=== PATIENT | female | born 1990 | race Caucasian/White ===

== ENCOUNTER 2020-11-16 10:15 | Emergency (ER) | payer MEDICAID ==
[~2020-11-16] VITALS: Ht 154.9 cm; Wt 70.5 kg
[2020-11-16 12:00] VITALS: BP 140/93
== END 2020-11-16 13:19 | disposition left against medical advice (07) ==
LOC: ER 10:15
DX: M25.511 Pain in right shoulder (principal); Z53.21 Procedure and treatment not carried out due to patient leaving prior to being seen by health care provider

== ENCOUNTER 2020-11-28 00:22 | Emergency (ER) | payer MEDICAID ==
[~2020-11-28] VITALS: Ht 152.4 cm; Wt 72.0 kg
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
[2020-11-28 04:19] LABS: BASO # 0.1 x10^3/uL (0.0-0.2); BASO % 1 % (0-3); EOS # 0.4 x10^3/uL (0.0-0.7); EOS % 3 % (0-3); HEMATOCRIT 33.4 % (36.0-47.0); HEMOGLOBIN 11.4 g/dL (12.0-15.5); LYMPH # 2.7 x10^3/uL (1.0-4.8); LYMPH % 22 % (24-48); MEAN CORPUSCULAR HEMOGLOBIN 29 pg (25-35); MEAN CORPUSCULAR HGB CONC 34 g/dL (31-37); MEAN CORPUSCULAR VOLUME 86 fL (79-100); MONO # 0.9 x10^3/uL (0.0-1.1); MONO % 7 % (0-9); NEUT # 8.1 x10^3/uL (1.8-7.7); NEUT % 67 % (31-73); PLATELET COUNT 282 x10^3/uL (140-400); RED BLOOD COUNT 3.89 x10^6/uL (3.50-5.40); RED CELL DISTRIBUTION WIDTH 14.6 % (11.5-14.5); WHITE BLOOD COUNT 12.1 x10^3/uL (4.0-11.0)
[2020-11-28 04:29] LABS: CALCIUM 9.1 mg/dL (8.5-10.1); CREATININE 0.7 mg/dL (0.6-1.0); GFR 99.6; POTASSIUM 3.3 mmol/L (3.5-5.1)
[2020-11-28 04:30] LABS: PREG TEST PT QUAL NEGATIVE (NEG)
[2020-11-28 04:35] LABS: ALBUMIN 3.7 g/dL (3.4-5.0); ALBUMIN/GLOBULIN RATIO 0.9 (1.0-1.7); TOTAL BILIRUBIN 0.7 mg/dL (0.2-1.0); TOTAL PROTEIN 7.7 g/dL (6.4-8.2)
[2020-11-28 04:41] VITALS: BP 166/84
== END 2020-11-28 05:35 | disposition home or self-care (01) ==
LOC: ER 00:22
DX: F15.90 Other stimulant use, unspecified, uncomplicated (principal); F39 Unspecified mood [affective] disorder; M79.676 Pain in unspecified toe(s); R22.2 Localized swelling, mass and lump, trunk; F17.200 Nicotine dependence, unspecified, uncomplicated; Z88.8 Allergy status to other drugs, medicaments and biological substances
CPT/HCPCS: 36415; 80053; 82550; 83690; 84703; 85025; 99284; G0480